=== PATIENT | female | born 1950 | race Caucasian/White ===

== ENCOUNTER 2016-09-03 12:14 | Inpatient (IN) | payer OTHER ==
[~2016-09-03] VITALS: Ht 152.4 cm; Wt 98.4 kg
--- NOTE | 2016-09-03 12:20 | NUR ---
BIB SON DT SOB AND SHORTNESS OF BREATH SINCE THIS MORNING, PATIENT IS AAO4, APPEARS IN NO APPARENT DISTRESS, RESPIRATION EVEN AND UNLABORED. SKIN IS WARM TO TOUCH AND NON DIAPHORETIC. PATIENT IS AFEBRILE. VSS. GOWNED PT AND PLACED ON TELE MONITOR. VSS
[2016-09-03] MEDS ORDERED: MECLIZINE HCL 25 MG TABLET ONE (12:29)
[2016-09-03] MEDS ORDERED: ONDANSETRON HCL/PF 4 MG/2 ML VIAL ONE (12:29)
[2016-09-03] MEDS ORDERED: IV NS 0.9% 500 ML IV ONE (12:29)
[2016-09-03] MEDS ORDERED: ONDANSETRON HCL/PF 4 MG/2 ML VIAL IVP ONE (12:30)
[2016-09-03] MEDS ORDERED: IV SET PRIMARY PUMP SET 1 EA INFUS.SET MC ONE (12:30)
[2016-09-03] MEDS ORDERED: MECLIZINE HCL 12.5 MG TABLET PO ONE (12:30)
[2016-09-03] MEDS ORDERED: IV NS 0.9% 500 ML BAG IV ONE (12:30)
[2016-09-03 12:36] LABS: BASOPHILS % (AUTO) 0.8 % (0.0-2.0); EOSINOPHILS # (AUTO) 0.1 /CMM (0.0-0.7); EOSINOPHILS % (AUTO) 2.1 % (0.0-6.0); HEMATOCRIT 39 % (33-45); HEMOGLOBIN 13.1 g/dL (11.5-14.8); LYMPHOCYTES % (AUTO) 46.2 % (20.0-44.0); MEAN CORPUSCULAR HEMOGLOBIN 32 PG (26.0-33.0); MEAN CORPUSCULAR HGB CONC 33 g/dl (31.0-36.0); MEAN CORPUSCULAR VOLUME 96 fL (82-100); MONOCYTES # (AUTO) 0.5 /CMM (0.1-1.30); MONOCYTES % (AUTO) 10.5 % (2.0-12.0); NEUTROPHILS # (AUTO) 1.8 /CMM (1.8-8.9); NEUTROPHILS % (AUTO) 40.4 % (43.0-81.0); PLATELET COUNT (AUTO) 184 /CMM (150-450); RDW COEFFICIENT OF VARIATION 12.3 (11.5-15.0); RED BLOOD CELL COUNT(AUTO) 4.11 MIL/uL (4.0-5.2); WHITE BLOOD COUNT (AUTO) 4.4 K/uL (4.3-11.0)
[2016-09-03 12:46] LABS: CALCIUM, SERUM 8.7 mg/dL (8.5-10.1); CARBON DIOXIDE 26 mmol/L (21-32); CHLORIDE 106 mmol/L (98-107); CREATININE 0.9 mg/dL (0.6-1.3); GLUCOSE 133 mg/dL (74-106); POTASSIUM 3.6 mmol/L (3.5-5.1); SODIUM SERUM 140 mmol/L (136-145); UREA NITROGEN, BLOOD 18 mg/dL (7-18)
[2016-09-03 12:50] LABS: INR 1.06 (0.87-1.13)
[2016-09-03 12:55] LABS: TROPONIN I < 0.017 ng/mL (0.00-0.056)
--- NOTE | 2016-09-03 14:04 | NUR ---
PAGED DR BERTO CAMARENA
[2016-09-03 14:05] LABS: APPEARANCE,URINE Clear (CLEAR); BILIRUBIN,URINE Negative (NEGATIVE); BLOOD, URINE Negative Ery/uL (NEGATIVE); COLOR,URINE Yellow (YELLOW); KETONES,URINE Negative (NEGATIVE); LEUKOCYTE ESTERASE ,URINE Negative (NEGATIVE); NITRITE, URINE Negative (NEGATIVE); PROTEIN,URINE Negative (NEGATIVE); UGLUCOSE Negative (NEGATIVE); UROBILINOGEN,URINE 0.2 EU/dL (0.2)
--- NOTE | 2016-09-03 14:05 | NUR ---
DADREWTHER-- Nida [phone] [facility]-- [phone]
[2016-09-03] MEDS ORDERED: ZOLPIDEM TARTRATE 5 MG TABLET PO PRN (14:30)
[2016-09-03] MEDS ORDERED: HYDROCODONE/APAP 5/325MG 1 EACH TABLET PO PRN (14:30)
[2016-09-03] MEDS ORDERED: Z GUARD REMEDY 2 OZ OINT TP PRN (14:30)
[2016-09-03] MEDS ORDERED: ACETAMINOPHEN 325 MG TABLET PO PRN (14:30)
[2016-09-03] MEDS ORDERED: ONDANSETRON HCL/PF 4 MG/2 ML VIAL IVP PRN (14:30)
[2016-09-03] MEDS ORDERED: MAG HYDROX/AL HYDROX/SIMETH 30 ML UDC PO PRN (14:30)
[2016-09-03] MEDS ORDERED: MAGNESIUM HYDROXIDE 30 ML UDC PO PRN (14:30)
--- NOTE | 2016-09-03 14:36 | NUR ---
PATIENT ASSIGNED TO TELE 310-1, DX WITH TIA, ACCEPTED BY DR CAMARENA. RN TO RN REPORT CAN BE GIVEN TO MARIA DE JESUS
[2016-09-03] MEDS ORDERED: MECLIZINE HCL 12.5 MG TABLET PO PRN (15:00)
[2016-09-03] MEDS ORDERED: hydrALAZINE HCL 10 MG TABLET PO PRN (15:00)
--- NOTE | 2016-09-03 15:01 | NUR ---
PATIENT TRANSPORTED TO TELE3, VSS,.
--- NOTE | 2016-09-03 15:20 | NUR ---
PT. BROUGHT UP FROM ER,MADE COMFORTABLE.TECH IN RM. IMMEDIATELY TO DO ECHO.
[2016-09-03 16:09] VITALS: BP 139/74
--- NOTE | 2016-09-03 17:15 | NUR ---
HOOKED UP TO TELE-SINUS BOAZ RATE OF 54.
[2016-09-03] MEDS: ENOXAPARIN SODIUM 40 MG/0.4 ML DISP.SYRIN SQ SCH (17:46)
--- NOTE | 2016-09-03 18:30 | NUR ---
QUIET,ANSWERING QUESTIONS SLOWLY,SPEAKS MOSTLY FARSI.
--- NOTE | 2016-09-03 19:00 | NUR ---
MS RN INITIAL NOTE PT RECEIVED IN BED, NO S/S OF RESPIRATORY DISTRESS OR SOB. IV SITE INTACT WITH NO S/S OF INFILTRATION NOTED. SAFE ENVIRONMENT PROVIDED FREE OF CLUTTERS .BED IN LOCKED, LOW POSITION. CALL LIGHT WITHIN EASY REACH. WILL CONTINUE TO MONITOR.
[2016-09-03] MEDS ORDERED: NEBI5TAB8 PO (19:23)
[2016-09-03 19:32] LABS: TROPONIN I < 0.017 ng/mL (0.00-0.056)
[2016-09-03 20:00] VITALS: BP 150/72
[2016-09-04] VITALS: BP 130/82
[2016-09-04 04:00] VITALS: BP 150/97
[2016-09-04 06:22] LABS: BASOPHILS % (AUTO) 0.6 % (0.0-2.0); EOSINOPHILS # (AUTO) 0.1 /CMM (0.0-0.7); HEMATOCRIT 38 % (33-45); HEMOGLOBIN 13.1 g/dL (11.5-14.8); LYMPHOCYTES # (AUTO) 2.7 /CMM (0.8-4.8); LYMPHOCYTES % (AUTO) 51.2 % (20.0-44.0); MEAN CORPUSCULAR HEMOGLOBIN 33 PG (26.0-33.0); MEAN CORPUSCULAR HGB CONC 34 g/dl (31.0-36.0); MEAN CORPUSCULAR VOLUME 95 fL (82-100); MONOCYTES # (AUTO) 0.6 /CMM (0.1-1.30); MONOCYTES % (AUTO) 11.6 % (2.0-12.0); NEUTROPHILS # (AUTO) 1.8 /CMM (1.8-8.9); NEUTROPHILS % (AUTO) 34.6 % (43.0-81.0); PLATELET COUNT (AUTO) 167 /CMM (150-450); RDW COEFFICIENT OF VARIATION 13.6 (11.5-15.0); WHITE BLOOD COUNT (AUTO) 5.3 K/uL (4.3-11.0)
--- NOTE | 2016-09-04 06:25 | NUR ---
DRUM BARKER OPERATOR CLOSING NOTES PATIENT COMFORTABLY ASLEEP AND EASILY AWAKEN, HEAD OF BED ELEVATED FOR BETTER LUNG EXPANSION, TOLERATING ROOM AIR O2 SAT 97% R.A NOT APPARENT DISTRESS. AFEBRILE, ON STEWARD/STEWARDESS SB 57. NO COMPLAINS OF CHEST PAIN. ON ANTICOAGULANT WITH NO S/S OF BLEEDING NOTED. ALL NURSING CARE NEEDS PROVIDED AND RENDERED, NEEDS ATTENDED AND ANTICIPATED, KEPT CLEAN AND DRY AND COMFORTABLE, GOOD SKIN CARE PROVIDED. FREQUENT VISUAL CHECK DONE FOR SAFETY Q2H, SAFE HAZARD FREE ENVIRONMENT PROVIDED. CALL LIGHT WITHIN EASY TO REACH, ON LOW BED AT ALL TIMES TO ENSURE SAFETY, WILL ENDORSE TO THE NEXT SHIFT CONTINUE PLAN OF CARE.
[2016-09-04 06:45] LABS: CALCIUM, SERUM 8.8 mg/dL (8.5-10.1); CREATININE 0.8 mg/dL (0.6-1.3); PHOSPHORUS 3.9 mg/dL (2.5-4.9)
--- NOTE | 2016-09-04 07:30 | NUR ---
TELE/RN OPENING NOTES PT. IS IN BED A&OX4. PT. IS ON TELE MONITOR HEART RHYTHM IS SINUS BOAZ FIRST DEGREE AV BLOCK AT 59 BPM. NO SOB, BREATHING ON ROOM AIR UNLABORED. NO S/S OF ACUTE DISTRESS. BED IS IN LOW POSITION, 2 SIDE RAILS UP, AND INSTRUCTED PT. TO USE CALL LIGHT FOR ASSISTANCE. WILL CONTINUE TO ASSESS AND MONITOR.
[2016-09-04 08:00] VITALS: BP 135/68
[2016-09-04] MEDS: PANTOPRAZOLE 40 MG TABLET.DR PO SCH (08:39)
[2016-09-04] MEDS: ASPIRIN EC 325 MG TABLET.DR PO SCH (08:39)
[2016-09-04 12:00] VITALS: BP 139/66
[2016-09-04 12:11] LABS: ALBUMIN 3.4 g/dL (3.4-5.0); BILIRUBIN,DIRECT 0.1 mg/dL (0.0-0.2); BILIRUBIN,TOTAL 0.6 mg/dL (0.2-1.0); TOTAL PROTEIN, SERUM 7.4 g/dL (6.4-8.2)
[2016-09-04] MEDS: ENOXAPARIN SODIUM 40 MG/0.4 ML DISP.SYRIN SQ SCH (14:41)
[2016-09-04 16:00] VITALS: BP 124/99
--- NOTE | 2016-09-04 19:30 | NUR ---
TELE/RN CLOSING NOTES PT. IS A&OX4. ON TELE MONITOR SINUS BRADYCARDIA 59 BPM. NO SOB, PT. IS BREATHING ON ROOM AIR UNLABORED. NO S/S OF ACUTE DISTRESS. PT. IV ACCESS ON LEFT ANTECUBITAL SITE, INTACT AND PATENT. BED IS IN LOW POSITION, 2 SIDE RAILS UP, AND ALL NEEDS MET. WILL ENDORSE REPORT TO FISH AND WILDLIFE BIOLOGIST NURSE.
--- NOTE | 2016-09-04 19:40 | NUR ---
MS RN NOTES RECEIVED RESTING COMFORTABLY ON BED,A/O X4,BREATHING REGULAR,NOT IN ANY FORM OF DISTRESS.SALINE LOCK LEFT AC INTACT AND PATENT. SEEN BY DR GARNER, TUBE CLOSING MACHINE OPERATOR,TELE ORDER WAS DISCONTINUED.DENIES CHEST PAIN,CALL LIGHT IN REACH,NEEDS ANTICIPATED.
[2016-09-04 20:00] VITALS: BP 132/57
--- NOTE | 2016-09-04 23:00 | NUR ---
MS RN NOTES SLEEPING AT THIS TIME,OFFERED WARM BLANKET FOR COMFORT
--- NOTE | 2016-09-05 03:30 | NUR ---
MS RN NOTES REMAINS ASLEEP,KEPT WARM AND COMFORTABLE.
--- NOTE | 2016-09-05 07:08 | NUR ---
MS RN NOTES NO SIGNIFICANT CHANGE IN STATUS.DENIES CHEST PAIN.SLEPT WELL.POSSIBLE D/C TODAY.WILL ENDORSE TO DAY NURSE FOR ODESSA.
[2016-09-05 07:42] LABS: BASOPHILS % (AUTO) 0.5 % (0.0-2.0); EOSINOPHILS # (AUTO) 0.1 /CMM (0.0-0.7); EOSINOPHILS % (AUTO) 2.5 % (0.0-6.0); HEMATOCRIT 40 % (33-45); HEMOGLOBIN 13.4 g/dL (11.5-14.8); LYMPHOCYTES % (AUTO) 53.8 % (20.0-44.0); MEAN CORPUSCULAR HEMOGLOBIN 33 PG (26.0-33.0); MEAN CORPUSCULAR HGB CONC 34 g/dl (31.0-36.0); MEAN CORPUSCULAR VOLUME 96 fL (82-100); MONOCYTES # (AUTO) 0.7 /CMM (0.1-1.30); MONOCYTES % (AUTO) 12.3 % (2.0-12.0); NEUTROPHILS # (AUTO) 1.7 /CMM (1.8-8.9); NEUTROPHILS % (AUTO) 30.9 % (43.0-81.0); PLATELET COUNT (AUTO) 163 /CMM (150-450); RDW COEFFICIENT OF VARIATION 13.6 (11.5-15.0); RED BLOOD CELL COUNT(AUTO) 4.11 MIL/uL (4.0-5.2); WHITE BLOOD COUNT (AUTO) 5.5 K/uL (4.3-11.0)
[2016-09-05 08:00] VITALS: BP 146/85
--- NOTE | 2016-09-05 08:00 | NUR ---
MS/RN OPENING NOTES PT. IS LYING IN BED A&OX4. NO SOB, BREATHING ON ROOM AIR UNLABORED. NO S/S OF ACUTE DISTRESS. PT. DENIES DIZZINESS. IV ACCESS ON LEFT ANTECUBITAL SITE. BED IS IN LOW POSITION, 2 SIDE RAILS UP, AND INSTRUCTED PT. TO USE CALL LIGHT FOR ASSISTANCE. WILL CONTINUE TO ASSESS AND MONITOR.
[2016-09-05 08:10] LABS: CALCIUM, SERUM 8.8 mg/dL (8.5-10.1); CREATININE 0.9 mg/dL (0.6-1.3); POTASSIUM 4.1 mmol/L (3.5-5.1)
[2016-09-05] MEDS: PANTOPRAZOLE 40 MG TABLET.DR PO SCH (09:08)
[2016-09-05] MEDS: ASPIRIN EC 325 MG TABLET.DR PO SCH (09:08)
[2016-09-05] MEDS ORDERED: Medication Not On Formulary EA (Nebivolol Hcl (Bystolic) 5 MG) PO SCH (11:30)
[2016-09-05] MEDS: ENOXAPARIN SODIUM 40 MG/0.4 ML DISP.SYRIN SQ SCH (14:42)
[2016-09-05 16:00] VITALS: BP 141/79
--- NOTE | 2016-09-05 16:45 | NUR ---
MS/TACTICAL DECEPTION PLANS OFFICER NOTES PT. WAS DISCHARGED HOME WITH SELF CARE. PT. LEFT HOSPITAL WITH SON IN A WHEEL CHAIR IN MEDICALLY STABLE CONDITION. DISCHARGE PACKET WAS PROVIDED AND PAPERS SIGNED. BELONGING LIST WAS CHECKED AND SIGNED. ID BAND, AND IV WAS REMOVED. PT. WAS PROVIDED EDUCATION ON NEW MEDICATIONS, AND INSTRUCTED TO DISCONTINUE ANTIVERT. PT. VERBALIZED UNDERSTANDING OF TEACHING.
== END 2016-09-05 17:10 | disposition home or self-care (01) | DRG 69 ==
LOC: ER 12:17 → TELE 15:03 → MED 09-04 22:12
PROVIDERS: ADMIT Family Medicine; ATTEND Family Medicine
DX: G45.9 Transient cerebral ischemic attack, unspecified (principal); Z68.41 Body mass index [BMI] 40.0-44.9, adult; E66.01 Morbid (severe) obesity due to excess calories; I10 Essential (primary) hypertension; R07.89 Other chest pain; R53.1 Weakness
CPT/HCPCS: 36415; 70450-TC; 71010-TC; 80048-TC; 80061-TC; 80076-TC; 81000-TC; 82962-TC; 83735-TC; 84100-TC; 84443-TC; 84484-TC; 85025-TC; 85652-TC; 85730-TC; 86592; 87081-TC; 93307-TC; 93880-TC; 97001-TC; A4606; J1650; J2405; J7040; J8597; Z7610

== ENCOUNTER 2016-11-07 16:53 | Emergency (ER) | payer OTHER ==
[~2016-11-07] VITALS: Ht 162.6 cm; Wt 95.3 kg
[~2016-11-07 16:53] MED LIST: NEBI5TAB8 PO
--- NOTE | 2016-11-07 17:00 | NUR ---
PATIENT BIB SON C/O RIGHT SIDED FACIAL WEAKNESS AND PARALYSIS. PATIENT IS A/OX 4. BREATHING EVEN AND UNLABORED. VITALS STABLE. NO SOB. SAFETY AND COMFORT MEASURES IN PLACE. AWAITING MD ORDERS.
[2016-11-07] MEDS ORDERED: POLYVINYL ALCOHOL 15 ML BOTTLE ONE (17:36)
[2016-11-07] MEDS ORDERED: ACYCLOVIR 200 MG CAPSULE ONE (17:37)
[2016-11-07 17:46] LABS: BASOPHILS % (AUTO) 0.8 % (0.0-2.0); EOSINOPHILS # (AUTO) 0.2 /CMM (0.0-0.7); HEMATOCRIT 39 % (33-45); HEMOGLOBIN 13.1 g/dL (11.5-14.8); LYMPHOCYTES # (AUTO) 2.7 /CMM (0.8-4.8); LYMPHOCYTES % (AUTO) 45.1 % (20.0-44.0); MEAN CORPUSCULAR HEMOGLOBIN 32 PG (26.0-33.0); MEAN CORPUSCULAR HGB CONC 33 g/dl (31.0-36.0); MEAN CORPUSCULAR VOLUME 95 fL (82-100); MONOCYTES # (AUTO) 0.7 /CMM (0.1-1.30); MONOCYTES % (AUTO) 11.4 % (2.0-12.0); NEUTROPHILS # (AUTO) 2.4 /CMM (1.8-8.9); NEUTROPHILS % (AUTO) 39.7 % (43.0-81.0); PLATELET COUNT (AUTO) 193 /CMM (150-450); RDW COEFFICIENT OF VARIATION 12.8 (11.5-15.0)
--- NOTE | 2016-11-07 17:50 | NUR ---
NEW IV STARTED ON RFA, 20 G. BLOOD DRAWN AND SENT TO LAB.
[2016-11-07] MEDS ORDERED: DEXAMETHASONE SOD PHOSPHATE 6 MG in IV D5W 50 ML IV ONE (18:00)
[2016-11-07] MEDS ORDERED: ACYCLOVIR 200 MG CAPSULE PO ONE (18:00)
[2016-11-07] MEDS ORDERED: POLYVINYL ALCOHOL 15 ML BOTTLE OP ONE (18:00)
--- NOTE | 2016-11-07 18:00 | NUR ---
BLOOD SUGAR 129
[2016-11-07 18:01] LABS: INR 1.04 (0.87-1.13); PROTHROMBIN TIME 10.8 SECS (9.5-12.7)
[2016-11-07 18:03] LABS: ALANINE AMINOTRANSFERASE 53 U/L (12-78); ALBUMIN 3.7 g/dL (3.4-5.0); ALKALINE PHOSPHATASE 61 U/L (46-116); ASPARTATE AMINOTRANSFERASE 42 U/L (15-37); BILIRUBIN,DIRECT 0.1 mg/dL (0.0-0.2); BILIRUBIN,TOTAL 0.5 mg/dL (0.2-1.0); CALCIUM, SERUM 8.9 mg/dL (8.5-10.1); CARBON DIOXIDE 28 mmol/L (21-32); CHLORIDE 105 mmol/L (98-107); GLUCOSE 127 mg/dL (74-106); SODIUM SERUM 139 mmol/L (136-145); TOTAL PROTEIN, SERUM 7.7 g/dL (6.4-8.2); UREA NITROGEN, BLOOD 16 mg/dL (7-18)
[2016-11-07 18:05] LABS: TROPONIN I < 0.017 ng/mL (0.00-0.056)
--- NOTE | 2016-11-07 18:15 | NUR ---
PATIENT TAKEN TO CT VIA STRETCHER.
--- NOTE | 2016-11-07 18:30 | NUR ---
PATIENT RETURNED FROM CT.
--- NOTE | 2016-11-07 18:53 | NUR ---
IV removed. Catheter intact and site benign. Pressure and 4x4 applied to site. No bleeding noted.Patient discharged to home in stable condition. Written and verbal after care instructions given. Patient verbalizes understanding of instruction.
[2016-11-07 19:00] VITALS: BP 130/62
== END 2016-11-07 19:01 | disposition home or self-care (01) ==
LOC: ER 16:54
DX: G51.0 Bell's palsy (principal); M50.10 Cervical disc disorder with radiculopathy, unspecified cervical region; I10 Essential (primary) hypertension; R79.1 Abnormal coagulation profile
CPT/HCPCS: 36415; 70450-TC; 71010-TC; 72125-TC; 80048-TC; 80076-TC; 82962-TC; 84484-TC; 85025-TC; 85730-TC; A4606; J1100; J7060; Z7610

== ENCOUNTER 2017-02-03 18:23 | Emergency (ER) | payer OTHER ==
[~2017-02-03] VITALS: Ht 162.6 cm; Wt 81.6 kg
--- NOTE | 2017-02-03 18:26 | NUR ---
PT AMBULATORY TO ER BED 11 C/O LOWER BACK PAIN R/T LLE X 3 DAYS NOW. PT DENIES TRAUMA, DENIES HX OF SCIATICA. 11/20 PAIN. STABLE VITALS. AWAITING MD PINTO.
--- NOTE | 2017-02-03 19:03 | NUR ---
ELY DUNLAP AT [facility] FOR EVAL.
[2017-02-03] MEDS ORDERED: KETOROLAC TROMETHAMINE INJ 60 MG/2 ML VIAL IM ONE ×2 (19:19→19:30)
--- NOTE | 2017-02-03 21:07 | NUR ---
Patient discharged to home in stable condition. Written and verbal after care instructions given. Patient verbalizes understanding of instruction.
[2017-02-03 21:09] VITALS: BP 120/74
== END 2017-02-03 21:14 | disposition home or self-care (01) ==
LOC: ER 18:26
DX: M54.5 Low back pain (principal); I10 Essential (primary) hypertension
CPT/HCPCS: 96372; 99283; A4606; J1885; Z7610

== ENCOUNTER 2017-05-14 18:49 | Emergency (ER) | payer OTHER ==
[~2017-05-14] VITALS: Ht 170.2 cm; Wt 90.7 kg
--- NOTE | 2017-05-14 18:59 | NUR ---
C/O FEVER, BODYACHES, CHILLS, COUGH X 2 WKS TAKING OTC MEDICATIONS WITH NO AFFECT. NO SOB NOTED. A/OX4 VSS NAD. WILL CONTINUE TO MONITOR FOR ANY CHANGES DURING THE SHIFT. PT ABLE TO MAKE NEEDS KNOWN.
--- NOTE | 2017-05-14 19:13 | NUR ---
CLINICAL INFORMATICS PHYSICIAN AT BEDSIDE FOR BLOOD DRAW
[2017-05-14] MEDS ORDERED: ONDANSETRON HCL/PF 4 MG/2 ML VIAL ONE ×2 (19:15→19:17)
--- NOTE | 2017-05-14 19:15 | NUR ---
EKG TA BEDSIDE
--- NOTE | 2017-05-14 19:20 | NUR ---
ELECTRONICS REPAIR TECHNICIAN AT BEDSIDE
[2017-05-14 19:24] LABS: BASOPHILS % (AUTO) 0.7 % (0.0-2.0); EOSINOPHILS # (AUTO) 0.2 /CMM (0.0-0.7); EOSINOPHILS % (AUTO) 4.1 % (0.0-6.0); HEMATOCRIT 40 % (33-45); HEMOGLOBIN 13.7 g/dL (11.5-14.8); LYMPHOCYTES # (AUTO) 2.2 /CMM (0.8-4.8); LYMPHOCYTES % (AUTO) 45.8 % (20.0-44.0); MEAN CORPUSCULAR HEMOGLOBIN 32 PG (26.0-33.0); MEAN CORPUSCULAR HGB CONC 34 g/dl (31.0-36.0); MEAN CORPUSCULAR VOLUME 94 fL (82-100); MONOCYTES % (AUTO) 21.6 % (2.0-12.0); NEUTROPHILS # (AUTO) 1.3 /CMM (1.8-8.9); NEUTROPHILS % (AUTO) 27.8 % (43.0-81.0); PLATELET COUNT (AUTO) 185 /CMM (150-450); RDW COEFFICIENT OF VARIATION 13.2 (11.5-15.0); RED BLOOD CELL COUNT(AUTO) 4.26 MIL/uL (4.0-5.2); WHITE BLOOD COUNT (AUTO) 4.7 K/uL (4.3-11.0)
--- NOTE | 2017-05-14 19:27 | NUR ---
PT OFF TO BATHROOM FOR URINE SAMPLE
[2017-05-14] MEDS ORDERED: ONDANSETRON HCL/PF 4 MG/2 ML VIAL IVP ONE (19:30)
[2017-05-14] MEDS ORDERED: IV NS 0.9% 1,000 ML BAG IV ONE (19:30)
[2017-05-14 19:35] LABS: INR 1.05 (0.85-1.15)
[2017-05-14 19:37] LABS: ALANINE AMINOTRANSFERASE 53 U/L (12-78); ALBUMIN 3.8 g/dL (3.4-5.0); ALKALINE PHOSPHATASE 62 U/L (46-116); ASPARTATE AMINOTRANSFERASE 41 U/L (15-37); BILIRUBIN,DIRECT 0.2 mg/dL (0.0-0.2); BILIRUBIN,TOTAL 0.4 mg/dL (0.2-1.0); CALCIUM, SERUM 9.6 mg/dL (8.5-10.1); CARBON DIOXIDE 28 mmol/L (21-32); CHLORIDE 104 mmol/L (98-107); CREATININE 0.9 mg/dL (0.6-1.3); GLUCOSE 95 mg/dL (74-106); POTASSIUM 3.8 mmol/L (3.5-5.1); SODIUM SERUM 139 mmol/L (136-145); TOTAL PROTEIN, SERUM 8.4 g/dL (6.4-8.2); UREA NITROGEN, BLOOD 14 mg/dL (7-18)
[2017-05-14 19:40] LABS: TROPONIN I < 0.017 ng/mL (0.00-0.056)
[2017-05-14 20:46] LABS: BILIRUBIN,URINE Negative (NEGATIVE); BLOOD, URINE Negative Ery/uL (NEGATIVE); COLOR,URINE Yellow (YELLOW); KETONES,URINE Negative (NEGATIVE); LEUKOCYTE ESTERASE ,URINE Negative (NEGATIVE); NITRITE, URINE Negative (NEGATIVE); PH,URINE 7.5 (5.0-8.0); PROTEIN,URINE Negative (NEGATIVE); UGLUCOSE Negative (NEGATIVE); UROBILINOGEN,URINE 0.2 EU/dL (0.2)
[2017-05-14 20:47] LABS: APPEARANCE,URINE CLOUDY (CLEAR)
[2017-05-14 20:53] LABS: BACTERIA,URINE None seen /HPF (None Seen); RBC,URINE NONE SEEN /HPF (0-2); SQUAMOUS EPITHELIAL CELL,UR None Seen /HPF (None Seen); URINE AMORPHOUS PHOSPHATES Moderate /HPF (None Seen); WBC,URINE NONE SEEN /HPF (0-3)
[2017-05-14 20:54] VITALS: BP 152/119
[2017-05-14 22:52] LABS: EOSINOPHILS % (MANUAL) 1 % (0-4); LYMPHOCYTES % (MANUAL) 55 % (16-48); MONOCYTES % (MANUAL) 16 % (0-11.0); NEUTROPHILS % (MANUAL) 28 (42-76)
== END 2017-05-14 20:55 | disposition home or self-care (01) ==
LOC: ER 18:52
DX: R50.9 Fever, unspecified (principal); M79.1 Myalgia; R05 Cough; R09.81 Nasal congestion; I11.9 Hypertensive heart disease without heart failure
CPT/HCPCS: 36415; 71045; 80048; 80076; 81001; 83605; 84484; 85025; 85730; 87040 ×2; 87086; 93005; 96361; 96374; 99285; A4606; J2405; J7030 ×2; Z7610; 81000-TC

== ENCOUNTER 2021-10-27 21:46 | Emergency (ER) | payer MEDICARE, OTHER ==
[~2021-10-27] VITALS: Ht 172.7 cm; Wt 83.5 kg
--- NOTE | 2021-10-27 21:58 | NUR ---
THONG FROM RESTURANT C/O HIVES ALL OVER BODY S/P EATING FISH GIVEN 0.5MG EPI AND 50MG BENADRYL BY RA. FEELS BETTER UPON TRIAGE. PATIENT ALERT AND ORIENTED X3. AMBULATORY WITH NON LABORED BREATHING IN BED 09 ON MONITOR AND POX, AWAITING MD PINTO.
[2021-10-27 23:49] VITALS: BP 130/98
--- NOTE | 2021-10-27 23:49 | NUR ---
Patient discharged to home in stable condition. Written and verbal after care instructions given. Patient verbalizes understanding of instruction.
== END 2021-10-28 00:11 | disposition home or self-care (01) ==
LOC: ER 22:04
DX: T78.1XXA Other adverse food reactions, not elsewhere classified, initial encounter (principal); I10 Essential (primary) hypertension; X58.XXXA Exposure to other specified factors, initial encounter

== ENCOUNTER 2022-06-21 20:43 | Emergency (ER) | payer MEDICARE, OTHER ==
[~2022-06-21] VITALS: Ht 165.1 cm; Wt 81.6 kg
[2022-06-21 22:52] VITALS: BP 172/84
--- NOTE | 2022-06-21 23:08 | NUR ---
Saurav patterson in ED - 06/21/22 at 2309 by AKIN Patient discharged to home in stable condition. Written and verbal after care instructions given. Patient verbalizes understanding of instruction.
[2022-06-21] MEDS ORDERED: TDAP [DIPH/PERTUSSIS/TET] 0.5 ML VIAL IM ONE ×2 (23:13→23:30)
[2022-06-21] MEDS ORDERED: BACI/NEOM/POLY B OINT PKT 1 UDPKT PACKET TP ONE (23:30)
== END 2022-06-21 23:15 | disposition home or self-care (01) ==
LOC: ER 20:49
DX: S61.211A Laceration without foreign body of left index finger without damage to nail, initial encounter (principal); I10 Essential (primary) hypertension; Z79.899 Other long term (current) drug therapy; W26.0XXA Contact with knife, initial encounter; Y93.89 Activity, other specified; Y92.89 Other specified places as the place of occurrence of the external cause; Y99.8 Other external cause status
CPT/HCPCS: 90715

== ENCOUNTER 2023-02-04 21:33 | Emergency (ER) | payer MEDICARE, OTHER ==
[~2023-02-04] VITALS: Ht 162.6 cm; Wt 94.3 kg
[2023-02-04] MEDS ORDERED: OXYMETAZOLINE HCL NASAL SPRAY 30 ML BOTTLE NS ONE (22:27)
[2023-02-04] MEDS: OXYMETAZOLINE HCL NASAL SPRAY 30 ML BOTTLE NS ONE (22:30)
[2023-02-04 23:34] VITALS: BP 107/71; TEMP 98.2; O2SAT 98
== END 2023-02-04 23:34 | disposition home or self-care (01) ==
LOC: ER 21:37
DX: R04.0 Epistaxis (principal); I10 Essential (primary) hypertension; E78.5 Hyperlipidemia, unspecified; K21.9 Gastro-esophageal reflux disease without esophagitis